=== PATIENT | female | born 1980 | race Caucasian/White ===

== ENCOUNTER 2016-10-07 12:32 | Emergency (ER) | payer OTHER, MEDICAID ==
[2016-10-07 12:37] VITALS: RESP 20
--- NOTE | 2016-10-07 12:49 | CPEKG ---
Heart Rate: 72 RR Interval: 833 P-R Interval: 144 QRSD Interval: 94 QT Interval: 396 QTC Interval: 434 P [place]: 57 QRS [place]: 73 T Wave [place]: -7 EKG Severity - BORDERLINE ECG - EKG Impression: SINUS RHYTHM EKG Impression: BORDERLINE T ABNORMALITIES, INFERIOR LEADS Electronically Signed By: Kathy Galindo 07-Oct-2016 15:26:40
--- NOTE | 2016-10-07 13:00 | EDPHY ---
H & P Time Seen by Provider: 10/07/16 12:55 HPI/ROS: CHIEF COMPLAINT: Left-sided chest pain. HISTORY OF PRESENT ILLNESS: The patient is a 36-year-old female with a history of hypertension who presents with intermittent left-sided chest pain since yesterday after measuring it at a grocery store. The chest pain is described as sharp and radiates to her left shoulder. She reports that she gets these symptoms when she gets high blood pressure. She did measure her blood pressure high at a grocery store yesterday. She has been compliant with her blood pressure medications. She took a dose of amlodipine last night and this morning. She denies shortness of breath, nausea, or other complaints. She has been under a lot of stress lately and feels very anxious. REVIEW OF SYSTEMS: A complete 10-point review of systems was performed and is negative except for those items mentioned in the HPI. Past Medical/Surgical History: Hypertension, partial thyroidectomy. Social History: Nonsmoker. Smoking Status: Never smoked Physical Exam: General Appearance: Alert, anxious, tearful Eyes: Pupils equal and round, conjunctival injection ENT, Mouth: Mucous membranes moist Neck: Normal inspection Respiratory: No chest wall tenderness, Lungs are clear to auscultation Cardiovascular: Regular rate and rhythm Gastrointestinal: Abdomen is soft and non-tender Neurological: A&O, nonfocal, normal gait Skin: Warm and dry, no rash Extremities: Nontender, no pedal edema Psychiatric: Mood and affect normal Constitutional: Initial Vital Signs Temperature (C) 36.8 C 10/07/16 12:34 Heart Rate 65 10/07/16 12:34 Respiratory Rate 20 10/07/16 12:34 Blood Pressure 171/120 H 10/07/16 12:34 O2 Sat (%) 98 10/07/16 12:34 O2 Delivery Mode Room Air Allergies/Adverse Reactions: Penicillins Allergy (Unknown, Verified 10/07/16 12:33) tramadol HCl [From [facility]] Allergy (Verified 10/07/16 12:33) STEROIDS Allergy (Uncoded 01/05/12 15:09) Home Medications: Medication Instructions Recorded Amlodipine Besylate 10/07/16 LORazepam [Ativan (RX)] 1 mg PO Q12 PRN #6 tab 10/07/16 Medical Decision Making - Diagnostics Imaging: Imaging Impressions Chest X-Ray 10/07/16 13:11 Impression: Suspect recurrent airways disease. No pneumonia. ED Course/Re-evaluation: 36-year-old female with a history of hypertension presents with left-sided chest pain that began yesterday. This pain radiates to her left shoulder. She also reports being hypertensive and states that these symptoms usually occur together. The patient's blood pressure on arrival today is 171/120. She has been compliant with her blood pressure medications. She took Amlodipine yesterday night and this morning. An IV was established and basic labs ordered including d-dimer to rule out pulmonary embolism. Chest x-ray ordered. She has been under a lot of stress lately and appears to be anxious, .5mg IV Ativan administered. She feels better after IV Ativan and her blood pressure has decreased. Chest x-ray interpreted by me on the PACS system is negative for acute cardiopulmonary disease. See Imaging section for radiologist report. The patient 's lab work is unremarkable. D-dimer is negative. I feel that I can safely exclude acute pulmonary embolism with normal vital signs and a normal D-dimer. She is not in hypertensive urgency or emergency. There is no evidence of end- organ damage. She will be discharged home with primary care follow up as she has been unable to establish care with a PCP here in [place]. She is comfortable with this plan. I will send her home with a prescription for Ativan for anxiety. Differential Diagnosis: The differential diagnosis includes, but is not limited to: myocardial ischemia , pulmonary embolus, chest wall pain, pleural inflammation, and pulmonary infectious causes. - Data Points Laboratory Results: Laboratory Results 10/07/16 12:55 10/07/16 12:55 10/07/16 10/07/16 10/07/16 12:55 12:55 12:55 WBC 10.74 10^3/uL H 10^3/uL (3.80-9.50) RBC 4.60 10^6/uL 10^6/uL (4.18-5.33) Hgb 14.3 g/dL g/dL (12.6-16.3) Hct 42.3 % % (38.0-47.0) MCV 92.0 fL fL (81.5-99.8) MCH 31.1 pg pg (27.9-34.1) MCHC 33.8 g/dL g/dL (32.4-36.7) RDW 12.9 % % (11.5-15.2) Plt Count 226 10^3/uL 10^3/uL (150-400) MPV 11.6 fL fL (8.7-11.7) Neut % (Auto) 65.5 % % (39.3-74.2) Lymph % (Auto) 22.2 % % (15.0-45.0) [place] % (Auto) 7.4 % % (4.5-13.0) Eos % (Auto) 1.7 % % (0.6-7.6) Baso % (Auto) 0.7 % % (0.3-1.7) Nucleat RBC Rel Count 0.0 % % (0.0-0.2) Absolute Neuts (auto) 7.03 10^3/uL H 10^3/uL (1.70-6.50) Absolute Lymphs (auto) 2.38 10^3/uL 10^3/uL (1.00-3.00) Absolute Monos (auto) 0.80 10^3/uL 10^3/uL (0.30-0.80) Absolute Eos (auto) 0.18 10^3/uL 10^3/uL (0.03-0.40) Absolute Basos (auto) 0.08 10^3/uL 10^3/uL (0.02-0.10) Absolute Nucleated RBC 0.00 10^3/uL 10^3/uL (0-0.01) Immature Gran % 2.5 % H % (0.0-1.1) Immature Gran # 0.27 10^3/uL H 10^3/uL (0.00-0.10) D-Dimer < 0.27 ug/mLFEU ug/mLFEU (0.00-0.50) Sodium 140 mEq/L mEq/L (134-144) Potassium 4.6 mEq/L mEq/L (3.5-5.2) Chloride 106 mEq/L mEq/L (97-110) Carbon Dioxide 24 mEq/l mEq/l (22-31) Anion Gap 10 mEq/L mEq/L (8-16) BUN 10 mg/dL mg/dL (7-23) Creatinine 0.6 mg/dL mg/dL (0.6-1.0) Estimated GFR > 60 Glucose 99 mg/dL mg/dL (70-100) Calcium 9.5 mg/dL mg/dL (8.5-10.4) Medications Given: Discontinued Medications Ketorolac Tromethamine (Toradol) 30 mg IVP EDNOW ONE Stop: 10/07/16 13:56 Last Admin: 10/07/16 14:20 Dose: 30 mg Lorazepam (Ativan Injection) 0.5 mg IVP EDNOW ONE Stop: 10/07/16 13:13 Last Admin: 10/07/16 13:45 Dose: 0.5 mg Lorazepam (Ativan Injection) 0.5 mg IVP EDNOW ONE Stop: 10/07/16 13:57 Last Admin: 10/07/16 14:22 Dose: 0.5 mg Departure - Departure Disposition: Home, Routine, Self-Care Clinical Impression: Chest pain Qualifiers: Chest pain type: unspecified Qualified Code(s): R07.9 - Chest pain, unspecified Hypertension Qualifiers: Hypertension type: unspecified secondary hypertension Qualified Code(s): I15.9 - Secondary hypertension, unspecified Condition: Good Instructions: Chest Pain (ED), Hypertension (ED) Additional Instructions: Follow up with Dr. Joyce, outpatient medicine, for reevaluation. Take Ativan as prescribed when needed for anxiety. Return to the emergency department for any serious worsening of condition. Referrals: Keely Joyce MD [Medical Doctor] - As per Instructions Prescriptions: LORazepam [Ativan (RX)] 1 mg PO Q12 PRN #6 tab PRN Reason: Anxiety Report Scribed for: Kathy Galindo Report Scribed by: Colt Reyna Date of Report: 10/07/16 Time of Report: 12:57 Physician Review and Approval Statement: 10/07/16 12:57 Portions of this note were transcribed by a emergency medical service coordinator. I personally performed a history, physical exam, medical decision making, and confirmed accuracy of information the transcribed note.
[2016-10-07] MEDS ORDERED: LORazepam 2 MG/ML INJ IVP ONE ×2 (13:12→13:56)
[2016-10-07 13:16] LABS: % IMMATURE GRANULYOCYTES 2.5 % (0.0-1.1); ABSOLUTE IMMATURE GRANULOCYTES 0.27 10^3/uL (0.00-0.10); ADD DIFF? NO; ADD MORPH? NO; ADD SCAN? NO; ATYPICAL LYMPHOCYTE FLAG 0 (0-99); FRAGMENT RBC FLAG 0 (0-99); HEMATOCRIT 42.3 % (38.0-47.0); HEMOGLOBIN 14.3 g/dL (12.6-16.3); LEFT SHIFT FLG 20 (0-99); LIPEMIA HEMOLYSIS FLAG 90 (0-99); MEAN CELL HEMOGLOBIN 31.1 pg (27.9-34.1); MEAN CELL HEMOGLOBIN CONCENTR. 33.8 g/dL (32.4-36.7); MEAN PLATELET VOLUME 11.6 fL (8.7-11.7); PLATELET CLUMPS FLAG 10 (0-99); PLATELET COUNT 226 10^3/uL (150-400); RED CELL DISTRIBUTION WIDTH 12.9 % (11.5-15.2)
[2016-10-07 13:26] LABS: ANION GAP 10 mEq/L (8-16); CALCIUM 9.5 mg/dL (8.5-10.4); CARBON DIOXIDE 24 mEq/l (22-31); CHLORIDE 106 mEq/L (97-110); CREATININE 0.6 mg/dL (0.6-1.0); GLOMERULAR FILTRATION RATE > 60; GLUCOSE 99 mg/dL (70-100); POTASSIUM 4.6 mEq/L (3.5-5.2); SODIUM 140 mEq/L (134-144)
[2016-10-07] MEDS ORDERED: KETOROLAC 30 MG/1 ML SDV IVP ONE (13:55)
[2016-10-07 14:29] VITALS: BP 156/115; PULSE 74; TEMP 98.1; O2SAT 95
== END 2016-10-07 14:29 | disposition home or self-care (01) ==
DX: R07.9 Chest pain, unspecified (principal); I15.9 Secondary hypertension, unspecified
CPT/HCPCS: 71020; 93005; 96374; 96375; 96376; 99285; J1885; J2060

== ENCOUNTER 2017-03-07 10:20 | Emergency (ER) | payer OTHER, MEDICAID ==
[2017-03-07 10:44] VITALS: TEMP 97.9
--- NOTE | 2017-03-07 13:07 | EDPHY ---
H & P Smoking Status: Never smoked Time Seen by Provider: 03/07/17 12:27 HPI/ROS: CHIEF COMPLAINT: HISTORY OF PRESENT ILLNESS: 36-year-old female with remote history of lumbar surgery, history of chronic back pain, chronic opiate use, states that 4 days ago her daughter was playing with her and pulled the chair out from underneath her and patient landed on her buttock. She has been complaining of acute exacerbation of her lumbar pain ever since what REVIEW OF SYSTEMS: A ten point review of systems was performed and is negative with the exception of the items mentioned in the HPI PAST MEDICAL & SURGICAL HISTORY: Chronic back pain. Lumbar surgery SOCIAL HISTORY:nonsmoker PHYSICAL EXAM (Prior to examination, patient consented to physical exam, hands were washed and my usual and customary physical exam procedures followed) 1) GENERAL: Obese, alert and oriented. Appears uncomfortable 2) HEAD: Normocephalic, atraumatic 3) HEENT: Pupils equal, round, reactive to light bilaterally. Sclera anicteric. Nasopharynx, oropharynx, clear, no lesions. 4) NECK: Full range of motion, no meningeal signs. 5) LUNGS: Clear auscultation bilaterally, no wheezes, no rhonchi, no retractions. 6) HEART: Regular rate and rhythm, no murmur, no heave, no gallop. 7) ABDOMEN: No guarding, no rebound, no focal tenderness, 8) MUSCULOSKELETAL: Moving all extremities, no focal areas of tenderness, no obvious trauma. No peripheral edema or discoloration. 9) BACK: tender to palpation right paraspinous lumbar muscle with multiple trigger points. No CVA tenderness, no midline vertebral tenderness, no fluctuance, no step-off, no obvious trauma, no visual or palpable abnormality. Patella, Achilles reflexes intact to bilateral strength 5/5 10) SKIN: No rash, no petechiae. 11) NEURO: Awake, alert, and oriented to person, place and time. Answers questions appropriately. There were no obvious focal neurologic abnormalities. No cerebellar dysfunction. Normal steady gait. Upper and lower extremities bilaterally with strength 5 / 5, reflexes 2+.. DIFFERENTIAL DIAGNOSIS: [In no particular order, including but not limited to, fracture, sprain/strain, cauda equina, spinal infectious etiology. (Bari Borges) Constitutional: Initial Vital Signs Temperature (C) 36.6 C 03/07/17 10:41 Heart Rate 84 03/07/17 10:41 Respiratory Rate 16 03/07/17 10:41 Blood Pressure 132/108 H 03/07/17 10:41 O2 Sat (%) 98 03/07/17 10:41 O2 Delivery Mode Room Air Allergies/Adverse Reactions: tramadol HCl [From [facility]] Allergy (Intermediate, Verified 03/07/17 10:40) aggression Penicillins Allergy (Unknown, Verified 03/07/17 10:39) as child STEROIDS Allergy (Mild, Uncoded 03/07/17 10:40) heart palpitations Home Medications: Medication Instructions Recorded Amlodipine Besylate 10/07/16 Amphet Asp and D/Amphet [Adderall 10 mg PO 03/07/17 10 MG (*)] Gabapentin [Neurontin 400 MG (*)] 400 mg PO 03/07/17 Oxycodone Ir (*) 03/07/17 MDM/Departure - MDM Imaging Results: Images reviewed myself (Bari Borges) Procedures: Procedure: Trigger point injection Indications: Focal tenderness at the right paraspinous lumbar region Indications risks benefits discussed with patient. Using 0.5% plain bupivacaine on a 27 gauge needle that was introduced into the muscle, multiple injections were fanned. Patient tolerated procedure well. Patient declined steroid (Bari Borges) Medications Given: Discontinued Medications Cyclobenzaprine HCl (Flexeril) 10 mg PO EDNOW ONE Stop: 03/07/17 13:59 Last Admin: 03/07/17 14:05 Dose: 10 mg Ketamine HCl (Ketamine) 29.2 mg 0.2 mg/kg (29.2 mg) IVP EDNOW ONE Stop: 03/07/17 15:31 Last Admin: 03/07/17 15:54 Dose: 29.2 mg Ketorolac Tromethamine (Toradol) 15 mg IVP EDNOW ONE Stop: 03/07/17 15:31 Last Admin: 03/07/17 15:53 Dose: 15 mg Lorazepam (Ativan) 1 mg PO EDNOW ONE Stop: 03/07/17 13:59 Last Admin: 03/07/17 14:05 Dose: 1 mg ED Course/Re-evaluation: 3:30 p.m.: Re-evaluation, she is complaining of continued pain after the trigger point injection and after oral analgesia. Will administer IV ketamine and Toradol and re-evaluated. 4:48 p.m.: Revaluation. At this time states that she is feeling significant improvement after receiving IV ketamine and Toradol. She would like to be discharged. She has sufficient supply of Flexeril and Percocet at home. We discussed a short course of steroids however states that she is not tolerate steroids well. I recommended she follow up with her neurosurgeon and paint stock clerk. I explained her that I have a lower index of suspicion for cauda equina, epidural abscess, epidural hematoma, lumbar myositis, diskitis, as the patient is neurologically intact in the lower extremities, has patella and Achilles reflexes intact and equal bilaterally, has no neurologic deficits, no incontinence, no retention, no midline pain, no fluctuance, afebrile, no flulike symptoms. Pain may be secondary to muscular strain, may be secondary to discogenic etiology. At this point I do not identify definitive indication for emergent MRI, however patient may necessitate this on an outpatient basis. Patient given acute back pain precautions. Patient verbalizes understanding of discharge instructions. I believe them be competent decision-makers. All questions and concerns have been addressed by me. Ample opportunity for questions have been provided . The patient understands that this diagnosis is provisional and can never be 100% accurate. Usual and customary warnings were given concerning the clinical impression and all the patient's questions were answered. The patient was instructed to return to the emergency department should her symptoms worsen or return, or develop any new symptoms, otherwise to followup as directed in discharge instructions. (Bair Borges) The patient was evaluated and managed by the Physician Cannery Tender Engineer/ Nurse Practitioner. My co-signature indicates that I have reviewed this chart and I agree with the findings and plan of care as documented. I am the secondary supervising physician. (Nancy Loya) - Depart Disposition: Home, Routine, Self-Care Clinical Impression: Acute low back pain Condition: Good Instructions: Acute Low Back Pain (ED) Additional Instructions: Seek medical attention if you develop new or worsening pain, if you develop bladder or bowel dysfunction, numbness around your perineum, foot drop, or any other symptoms that concern you. Referrals: DONAVAN TO [Other] - 1 day without fail
[2017-03-07] MEDS ORDERED: LORazepam 1 MG TAB PO ONE (13:58)
[2017-03-07] MEDS ORDERED: CYCLOBENZAPRINE 10 MG TAB PO ONE (13:58)
[2017-03-07] MEDS ORDERED: KETOROLAC 15 MG/1 ML SDV IVP ONE (15:30)
[2017-03-07] MEDS ORDERED: KETAMINE 100 MG/10 ML SYR IVP ONE (15:30)
[2017-03-07 15:56] VITALS: BP 152/102
[2017-03-07 16:44] VITALS: PULSE 62; RESP 16; O2SAT 98
== END 2017-03-07 17:14 | disposition home or self-care (01) ==
DX: S39.92XA Unspecified injury of lower back, initial encounter (principal); W07.XXXA Fall from chair, initial encounter
CPT/HCPCS: 72100; 96374; 96375; 99284; J1885

== ENCOUNTER 2018-12-13 22:16 | Emergency (ER) | payer OTHER, MEDICAID | END 2018-12-14 00:17 | disposition home or self-care (01) ==